=== PATIENT | female | born 1940 | race Caucasian/White ===

== ENCOUNTER 2018-03-05 11:21 | Inpatient (IN) | payer OTHER ==
[~2018-03-05] VITALS: Ht 167.6 cm; Wt 76.4 kg
[2018-03-05] VITALS (8 sets, daily range): BP systolic 119–151; BP diastolic 48–60
--- NOTE | ~2018-03-05 | EKG ---
[place] [address] [facility] [place] [address] ELECTROCARDIOGRAM REPORT Name: MARIAN LEALQUELINE CHRISTOPHER Room #: 355-P ADM IN M.R.#: [id number] Admission: 03/05/18 Attend Phys: Jaswinder Coburn MD Discharge: Date of : 40 Report #: [id number] THIS REPORT FOR: //name// [facility] ED Test Date: 2018-03-05 Test Time: 16:57:46 Pat Name: CRYSTAL LEAL Department: Room: 355 Gender: F Inspector Filter Tip: isac : 1940 Requested By: Edith Ayers Order Number: [id number] MD: Orestes Kirk Measurements Intervals [place] Rate: 128 P: SC: QRS: -58 QRSD: 99 T: 128 QT: 317 QTc: 463 Interpretive Statements Atrial fibrillation Left anterior fascicular block Abnormal R-wave progression, late transition LVH with secondary repolarization abnormality Compared to ECG 12/03/2014 21:21:19 Left ventricular hypertrophy now present Early repolarization now present Ventricular-paced complex(es) or rhythm no longer present Ventricular premature complex(es) no longer present ST (T wave) deviation no longer present Possible ischemia no longer present Electronically Signed On 03-06-2018 11:05:04 CDT by Orestes Kirk [email or web address] <ELECTRONICALLY SIGNED> By: Orestes Kirk MD 03/06/18 1105 1657 Orestes Kirk MD /EPI
[~2018-03-05 11:21] MED LIST: ALEVE220 MG PO; ATIVAN0.5 MG PO; CARDIZEM CD180 MG PO; COUMADIN 3 MG TA3 M1 PO; ELIQUIS5 MG PO; GABAPENTIN600 M1 PO; IRON325 PO; LANOXIN 0.25M0.25 M1 PO; LEVAQUIN 500 M500 M2 PO; NORCO 5-325 TA1 EACH PO; PREDNISONE 10 M10 MG PO; PRILOSEC20 MG PO; TENORMIN50 MG PO
[2018-03-05 12:00] LABS: ABSOLUTE NEUTROPHILS 11.5 thou/uL (1.4-8.2); BASOPHILS 0.3 % (0.0-2.0); EOSINOPHILS 1.6 % (0.0-3.0); HEMATOCRIT 34.3 % (37.0-47.0); HEMOGLOBIN 11.5 gm/dL (12.0-15.0); MCH 27.7 pg (26.0-34.0); MCHC 33.5 g/dL (28.0-37.0); MCV 82.7 fL (80.0-100.0); MONOCYTES 4.6 % (1.0-8.0); PLATELET COUNT 145 thou/uL (150-400); POLYS 86.5 % (36.0-66.0); RBC 4.15 mil/uL (4.20-5.00); WBC 13.3 thou/uL (4.0-11.0)
[2018-03-05 12:05] LABS: CREATININE 0.9 mg/dL (0.6-1.0); POTASSIUM 3.7 mmol/L (3.5-5.1)
[2018-03-05 12:11] LABS: ALBUMIN 3.6 g/dL (3.4-5.0); TOTAL BILIRUBIN 1.5 mg/dL (<0.1-1.0); TOTAL PROTEIN 7.7 g/dL (6.4-8.2)
[2018-03-05 12:38] LABS: BE(vivo) -1.4 mmol/L (-2 to +3); PCO2 32.6 mmHg (35.0-45.0); PO2 61.1 mmHg (80.0-100.0); pH 7.447 (7.360-7.450); sO2 92.7 % (92.0-98.0)
[2018-03-05] MEDS ORDERED: TOPROL XL25 MG PO (22:52)
[2018-03-05] MEDS ORDERED: CARDIZEM CD120 MG PO (22:55)
[2018-03-05] MEDS ORDERED: LASIX 20 MG TAB20 MG PO (23:02)
[2018-03-05] MEDS ORDERED: POTASSIUM20 PO (23:04)
[2018-03-06] VITALS (8 sets, daily range): BP systolic 129–154; BP diastolic 52–69
[2018-03-06 06:15] LABS: INR 1.8; PROTIME 18.3 Seconds (9.3-11.4)
[2018-03-06 17:11] LABS: URINE BILIRUBIN NEGATIVE (Negative); URINE BLOOD TRACE (Negative); URINE CLARITY CLEAR; URINE COLOR YELLOW; URINE GLUCOSE-RANDOM* NEGATIVE (Negative); URINE KETONES NEGATIVE (Negative); URINE NITRITE-REFLEX NEGATIVE (Negative); URINE PROTEIN (DIPSTICK) NEGATIVE (Negative); URINE SPECIFIC GRAVITY >= 1.030 (1.005-1.035); URINE UROBILINOGEN 0.2 E.U./dl (0.2-1.0)
[2018-03-06 17:12] LABS: URINE LEUKOCYTES-REFLEX 1+ (Negative)
[2018-03-06 17:17] LABS: BACTERIA-REFLEX 1-9 Few /HPF (None Seen); CASTS None Seen /LPF (None Seen); SQUAMOUS 4-10 Moderate /LPF (0-3); URINE RBC 0-2 Rare /HPF (0-2); URINE WBC-REFLEX 6-15 Few /HPF (0-5)
[2018-03-06 17:18] LABS: CRYSTALS None Seen /LPF (None Seen)
[2018-03-07 04:50] VITALS: BP 139/52
[2018-03-07 06:41] LABS: ABSOLUTE NEUTROPHILS 6.7 thou/uL (1.4-8.2); BASOPHILS 0.5 % (0.0-2.0); EOSINOPHILS 3.6 % (0.0-3.0); HEMATOCRIT 31.1 % (37.0-47.0); HEMOGLOBIN 10.5 gm/dL (12.0-15.0); LYMPHOCYTES 11.8 % (24.0-44.0); MCH 27.8 pg (26.0-34.0); MCHC 33.6 g/dL (28.0-37.0); MCV 82.7 fL (80.0-100.0); MONOCYTES 5.1 % (1.0-8.0); PLATELET COUNT 132 thou/uL (150-400); RBC 3.77 mil/uL (4.20-5.00); RDW 16.2 % (10.5-14.5); WBC 8.4 thou/uL (4.0-11.0)
[2018-03-07 06:47] LABS: INR 1.6; PROTIME 16.6 Seconds (9.3-11.4)
[2018-03-07 06:51] LABS: CALCIUM 8.6 mg/dL (8.5-10.1); CREATININE 0.7 mg/dL (0.6-1.0); POTASSIUM 3.4 mmol/L (3.5-5.1)
[2018-03-07 08:04] VITALS: BP 141/57
[2018-03-07 11:14] VITALS: BP 131/65
[2018-03-07 15:19] VITALS: BP 125/48
[2018-03-07 19:36] VITALS: BP 138/68
[2018-03-08 03:12] VITALS: BP 137/62
[2018-03-08 05:38] LABS: HEMATOCRIT 31.2 % (37.0-47.0); HEMOGLOBIN 10.2 gm/dL (12.0-15.0); MCH 26.9 pg (26.0-34.0); MCHC 32.6 g/dL (28.0-37.0); MCV 82.6 fL (80.0-100.0); RBC 3.78 mil/uL (4.20-5.00); WBC 8.5 thou/uL (4.0-11.0)
[2018-03-08 05:50] LABS: INR 1.9
[2018-03-08 05:55] LABS: ALBUMIN 3.2 g/dL (3.4-5.0); CALCIUM 8.8 mg/dL (8.5-10.1); CREATININE 0.8 mg/dL (0.6-1.0); POTASSIUM 3.5 mmol/L (3.5-5.1); TOTAL BILIRUBIN 0.7 mg/dL (<0.1-1.0); TOTAL PROTEIN 7.1 g/dL (6.4-8.2)
[2018-03-08 07:32] VITALS: BP 146/57
[2018-03-08 15:42] VITALS: BP 134/66
[2018-03-08 19:52] VITALS: BP 152/70
[2018-03-09 05:22] VITALS: BP 123/65
[2018-03-09 07:30] VITALS: BP 135/59
[2018-03-09 11:07] VITALS: BP 144/63
[2018-03-09 15:33] VITALS: BP 137/62
[2018-03-09 19:40] VITALS: BP 127/60
[2018-03-10 03:30] VITALS: BP 119/58
[2018-03-10 08:03] VITALS: BP 130/65
[2018-03-10 10:49] LABS: INR 2.5; PROTIME 25.5 Seconds (9.3-11.4)
[2018-03-10 11:57] VITALS: BP 118/47
[2018-03-10] MEDS ORDERED: AZITHROMYCIN 2250 MG PO (12:53)
[2018-03-10] MEDS ORDERED: CEFUROXIME250 MG PO (12:53)
[2018-03-10] MEDS ORDERED: CARDIZEM CD 18180 M3 PO (12:53)
[2018-03-10 12:56] VITALS: BP 118/47
== END 2018-03-10 15:43 | disposition home or self-care (01) | DRG 871 ==
LOC: ER 11:21 → EROBS 12:47 → 3W 12:47 → 4W 19:13 → 3W 20:55 → ENTRNSPT 03-10 14:31 → 3W 03-10 15:43
PROVIDERS: Family Medicine; Internal Medicine; Nurse Practitioner Acute Care; Physician Assistant
DX: A41.9 Sepsis, unspecified organism (principal); J18.9 Pneumonia, unspecified organism; I50.23 Acute on chronic systolic (congestive) heart failure; N39.0 Urinary tract infection, site not specified; I42.9 Cardiomyopathy, unspecified; I11.0 Hypertensive heart disease with heart failure; J45.909 Unspecified asthma, uncomplicated; M79.7 Fibromyalgia; I48.0 Paroxysmal atrial fibrillation; I48.2 Chronic atrial fibrillation; G62.9 Polyneuropathy, unspecified; K21.9 Gastro-esophageal reflux disease without esophagitis; Z95.0 Presence of cardiac pacemaker; Z90.49 Acquired absence of other specified parts of digestive tract; Z90.710 Acquired absence of both cervix and uterus; Z90.79 Acquired absence of other genital organ(s); Z90.722 Acquired absence of ovaries, bilateral; Z87.891 Personal history of nicotine dependence; Z79.01 Long term (current) use of anticoagulants; Z79.899 Other long term (current) drug therapy; Z88.7 Allergy status to serum and vaccine; Z88.8 Allergy status to other drugs, medicaments and biological substances; Z91.018 Allergy to other foods; Z23 Encounter for immunization
CPT/HCPCS: 10879

== ENCOUNTER 2018-04-22 16:20 | Inpatient (IN) | payer OTHER ==
[~2018-04-22] VITALS: Ht 152.4 cm; Wt 92.5 kg
--- NOTE | ~2018-04-22 | EKG ---
[address] [place] [address] ELECTROCARDIOGRAM REPORT Name: CRYSTAL LEAL Room #: 211-P ADM IN M.R.#: [id number] Admission: 04/22/18 Attend Phys: Jaswinder Coburn MD Discharge: Date of : 40 Report #: [id number] THIS REPORT FOR: //name// [facility] ED Test Date: 2018-04-22 Test Time: 16:52:46 Pat Name: CRYSTAL LEAL Department: Room: 211 Gender: F Campus Safety Officer: Nathalie GARCIA : 1940 Requested By: Daniela Bonilla Order Number: [id number] MD: Orlin Gonzales Measurements Intervals [place] Rate: 126 P: PA: QRS: -60 QRSD: 98 T: 118 QT: 305 QTc: 442 Interpretive Statements Atrial fibrillation Left anterior fascicular block Abnormal R-wave progression, late transition Compared to ECG 03/05/2018 16:57:46 No significant changes Electronically Signed On 04-23-2018 8:38:40 RF [employer] ENGINEER by Orlin Gonzales [email or web address] <ELECTRONICALLY SIGNED> By: Orlin Gonzales MD, [facility] 04/23/18 0838 [id number] Orlin Gonzales MD, [facility] /EPI
[~2018-04-22 16:20] MED LIST changes: +AZITHROMYCIN 2250 MG PO; +CARDIZEM CD 18180 M3 PO; +CARDIZEM CD120 MG PO; +CEFUROXIME250 MG PO; +LASIX 20 MG TAB20 MG PO; +POTASSIUM20 PO; +TOPROL XL25 MG PO
[2018-04-22 16:21] VITALS: BP 126/75
[2018-04-22 17:04] LABS: ABSOLUTE NEUTROPHILS 8.1 thou/uL (1.4-8.2); BASOPHILS 0.2 % (0.0-2.0); EOSINOPHILS 0.1 % (0.0-3.0); HEMATOCRIT 44.3 % (37.0-47.0); HEMOGLOBIN 14.8 gm/dL (12.0-15.0); LYMPHOCYTES 2.8 % (24.0-44.0); MCH 27.1 pg (26.0-34.0); MCHC 33.4 g/dL (28.0-37.0); MCV 81.1 fL (80.0-100.0); MONOCYTES 2.8 % (1.0-8.0); PLATELET COUNT 164 thou/uL (150-400); POLYS 94.1 % (36.0-66.0); RBC 5.47 mil/uL (4.20-5.00); RDW 16.4 % (10.5-14.5); WBC 8.6 thou/uL (4.0-11.0)
[2018-04-22 17:12] LABS: ANION GAP 9 mmol/L (7-16); BUN 14 mg/dL (7-18); CALCIUM 9.6 mg/dL (8.5-10.1); CHLORIDE 103 mmol/L (98-107); CO2 30 mmol/L (21-32); CREATININE 0.9 mg/dL (0.6-1.0); GLUCOSE 134 mg/dL (74-106); POTASSIUM 3.5 mmol/L (3.5-5.1); SODIUM 142 mmol/L (136-145)
[2018-04-22 17:21] LABS: ALBUMIN 3.9 g/dL (3.4-5.0); LIPASE 37 U/L (73-393); SGOT 19 U/L (15-37); SGPT 28 U/L (30-65); TOTAL BILIRUBIN 0.8 mg/dL (<0.1-1.0); TOTAL PROTEIN 7.9 g/dL (6.4-8.2); TROPONIN-I <0.06 ng/mL (<0.06)
[2018-04-22 17:54] VITALS: BP 148/55
[2018-04-22 19:37] VITALS: BP 121/46
[2018-04-22 20:28] VITALS: BP 120/58
[2018-04-22 23:58] VITALS: BP 120/70
[2018-04-23 04:48] VITALS: BP 135/54
[2018-04-23 08:00] VITALS: BP 128/67
[2018-04-23 08:24] LABS: HEMATOCRIT 36.7 % (37.0-47.0); HEMOGLOBIN 12.1 gm/dL (12.0-15.0); MCH 27.2 pg (26.0-34.0); MCV 82.6 fL (80.0-100.0); RBC 4.44 mil/uL (4.20-5.00); RDW 16.7 % (10.5-14.5); WBC 4.8 thou/uL (4.0-11.0)
[2018-04-23 08:35] LABS: CALCIUM 7.9 mg/dL (8.5-10.1); CREATININE 0.7 mg/dL (0.6-1.0); POTASSIUM 3.5 mmol/L (3.5-5.1)
[2018-04-23 08:36] LABS: INR 3.8; PROTIME 39.8 Seconds (9.3-11.4)
[2018-04-23 12:14] VITALS: BP 125/55
[2018-04-23 16:00] VITALS: BP 116/41
[2018-04-23 19:32] VITALS: BP 121/47
[2018-04-24 03:33] VITALS: BP 119/60
[2018-04-24 08:10] VITALS: BP 116/51
[2018-04-24 11:40] VITALS: BP 124/62
[2018-04-24 12:36] VITALS: BP 116/51
[2018-04-24 16:15] VITALS: BP 131/57
[2018-04-24 20:00] VITALS: BP 113/64
[2018-04-25 00:37] VITALS: BP 142/61
[2018-04-25 03:40] VITALS: BP 129/49
[2018-04-25 08:08] VITALS: BP 112/53
[2018-04-25 10:03] LABS: HEMATOCRIT 35.2 % (37.0-47.0); HEMOGLOBIN 11.7 gm/dL (12.0-15.0); MCH 27.2 pg (26.0-34.0); MCHC 33.4 g/dL (28.0-37.0); MCV 81.4 fL (80.0-100.0); RBC 4.32 mil/uL (4.20-5.00); RDW 16.7 % (10.5-14.5); WBC 7.3 thou/uL (4.0-11.0)
[2018-04-25 10:20] LABS: ALBUMIN 3.2 g/dL (3.4-5.0); CALCIUM 8.8 mg/dL (8.5-10.1); CREATININE 0.7 mg/dL (0.6-1.0); POTASSIUM 3.3 mmol/L (3.5-5.1); TOTAL BILIRUBIN 0.5 mg/dL (<0.1-1.0); TOTAL PROTEIN 6.3 g/dL (6.4-8.2)
[2018-04-25 12:13] VITALS: BP 112/44
[2018-04-25 16:27] VITALS: BP 127/55
[2018-04-25 19:50] VITALS: BP 126/65
[2018-04-26 04:38] LABS: PROTIME 20.3 Seconds (9.3-11.4)
[2018-04-26 04:47] VITALS: BP 128/46
[2018-04-26] MEDS ORDERED: COUMADIN 3 MG TA3 M1 PO (07:15)
[2018-04-26 07:59] VITALS: BP 126/65
[2018-04-26 11:28] VITALS: BP 109/54
== END 2018-04-26 16:00 | disposition home or self-care (01) | DRG 682 ==
LOC: ER 16:20 → EROBS 17:56 → 2N 17:56
PROVIDERS: Family Medicine; Physician Assistant
DX: N17.9 Acute kidney failure, unspecified (principal); E43 Unspecified severe protein-calorie malnutrition; I48.0 Paroxysmal atrial fibrillation; I10 Essential (primary) hypertension; K21.9 Gastro-esophageal reflux disease without esophagitis; J45.909 Unspecified asthma, uncomplicated; M79.7 Fibromyalgia; E86.0 Dehydration; K52.9 Noninfective gastroenteritis and colitis, unspecified; Z88.8 Allergy status to other drugs, medicaments and biological substances; Z88.7 Allergy status to serum and vaccine; Z79.899 Other long term (current) drug therapy; Z79.01 Long term (current) use of anticoagulants; Z87.440 Personal history of urinary (tract) infections; Z87.01 Personal history of pneumonia (recurrent); Z90.710 Acquired absence of both cervix and uterus; Z90.79 Acquired absence of other genital organ(s); Z90.722 Acquired absence of ovaries, bilateral; Z90.49 Acquired absence of other specified parts of digestive tract; Z87.891 Personal history of nicotine dependence
CPT/HCPCS: 10081